=== PATIENT | male | born 1955 | race Caucasian/White ===

== ENCOUNTER 2020-07-17 17:10 | Inpatient (IN) | payer MEDICAID ==
[~2020-07-17] VITALS: Ht 165.1 cm; Wt 79.4 kg
--- NOTE | 2020-07-17 18:45 | NUR ---
PT arrived via gurney at 1800 for Med Surg services. Vitals: BP 159/95, HR 86, O2 93% via NC 5L. PT transferred to bed by lubrication servicer. No acute distress noted. SOB noted during repositioning. PT stated no pain at the moment. PT admitted with Covid. PT is comfortable, cooperative and pleasant. Safety measures provided, call light within reach, bed low and lock. Will endorse report to night warehouse manager nurse.
--- NOTE | 2020-07-17 19:30 | NUR ---
RECEIVED PT IN NO ACUTE DISTRESS. IV INTACT. PT IN 5L NASAL CANNULA. PT AWAKE, ALERT AND ORIENTEDX4. SAFETY AND COMFORT PROVIDED. WILL CONTINUE TO MONITOR.
[2020-07-17 20:00] VITALS: BP 154/92
[2020-07-17] MEDS ORDERED: METF-494 PO (20:22)
[2020-07-17] MEDS ORDERED: MELO-107 PO (20:22)
[2020-07-17] MEDS ORDERED: DEXA10VI IV (21:03)
[2020-07-17] MEDS ORDERED: ZOLP5TAB2 PO (21:06)
[2020-07-17] MEDS: BLOOD SUGAR DIAGNOSTIC 1 EACH STRIP VI SCH (21:15)
[2020-07-17] MEDS ORDERED: DEXTROSE 50% 50 ML DISP.SYRIN IV PRN (21:15)
[2020-07-17] MEDS ORDERED: HYDROCODONE/APAP 5-325MG TABLET PO PRN (21:30)
[2020-07-17] MEDS ORDERED: ACETAMINOPHEN 325 MG TABLET PO PRN (21:30)
[2020-07-17] MEDS ORDERED: ONDANSETRON 4 MG/2 ML VIAL IV PRN (21:30)
[2020-07-17] MEDS ORDERED: Z GUARD REMEDY PASTE 57 GM TUBE TOP PRN (21:30)
[2020-07-17] MEDS ORDERED: MAGNESIUM HYDROXIDE 30 ML LIQUID UDC PO PRN (21:30)
[2020-07-17] MEDS: INSULIN REGULAR, HUMAN 300 UNIT/3 ML VIAL SQ PRN (22:23)
[2020-07-17] MEDS: ZOLPIDEM 5 MG TABLET PO PRN (23:41)
[2020-07-18 04:00] VITALS: BP 153/94
--- NOTE | 2020-07-18 06:15 | NUR ---
PT SLEPT INTERMITTENTLY. PT IN NO ACUTE DISTRESS. IV INTACT. PT ON 5L NASAL CANNULA. PRESCRIBED MEDICATION GIVEN AND PT TOLERATED IT WELL. PT GIVEN TYLENOL 650 MG PRN AT 2341H. SAFETY AND COMFORT PROVIDED. ALL NEEDS ARE MET.WILL CONTINUE TO MONITOR.
--- NOTE | 2020-07-18 06:16 | NUR ---
BLOOD SUGAR WAS 233. PT IN NO ACUTE DISTRESS. WILL ENDORSE TO INCOMING NURSE.
--- NOTE | 2020-07-18 06:29 | NUR ---
CALLED BACK THE FAMILY AND LEFT A MESSAGE IN VOICEMAIL.
[2020-07-18] MEDS: BLOOD SUGAR DIAGNOSTIC 1 EACH STRIP VI SCH ×4 (06:31→21:35)
--- NOTE | 2020-07-18 07:30 | NUR ---
Received patient in bed awake, alert and oriented times 4. Patient is on 5L of oxygen NC with no signs of distress. Safety precautions are in place. Will continue to monitor.
[2020-07-18 07:53] LABS: HEMATOCRIT 47.3 % (36.7-47.1); HEMOGLOBIN 16.2 g/dL (12.5-16.3); LYMPHOCYTES # (AUTO) 1.1 K/uL (20.0-40.0); LYMPHOCYTES % (AUTO) 8.1 % (20.5-51.5); MEAN CORPUSCULAR HEMOGLOBIN 30.6 uug (23.8-33.4); MEAN CORPUSCULAR HGB CONC 34 g/dL (32.5-36.3); MEAN CORPUSCULAR VOLUME 89.7 fL (73.0-96.2); MONOCYTES # (AUTO) 1.2 K/uL (2.0-10.0); MONOCYTES % (AUTO) 8.7 % (0.0-11.0); NEUTROPHILS # (AUTO) 11.2 K/uL (1.8-8.9); NEUTROPHILS % (AUTO) 83.2 % (38.5-71.5); PLATELET COUNT (AUTO) 198 K/uL (152-348); RED BLOOD CELL COUNT(AUTO) 5.28 MIL/uL (4.06-5.63); WHITE BLOOD COUNT (AUTO) 13.5 K/uL (3.6-10.2)
[2020-07-18 08:22] LABS: MAGNESIUM 2.3 mg/dL (1.8-2.4); PHOSPHOROUS 2.6 mg/dL (2.5-4.9); POTASSIUM 4.6 mmol/L (3.5-5.1)
[2020-07-18] MEDS: METFORMIN HCL 500 MG TABLET PO SCH ×2 (09:07→18:15)
[2020-07-18] MEDS: DEXAMETHASONE SOD PHOSPHATE 10 MG INJ IV SCH (09:08)
[2020-07-18] MEDS: MELOXICAM 7.5 MG TABLET PO SCH (09:08)
[2020-07-18] MEDS: ENOXAPARIN SODIUM 40 MG/0.4 ML DISP.SYRIN SQ SCH (09:09)
[2020-07-18] MEDS: INSULIN REGULAR, HUMAN 300 UNIT/3 ML VIAL SQ PRN ×4 (09:11→21:35)
[2020-07-18 11:56] VITALS: BP 133/89
[2020-07-18] MEDS: AZITHROMYCIN IV 500 MG in IV DEXTROSE 5% 250 ML IV SCH (12:26)
--- NOTE | 2020-07-18 13:10 | NUR ---
Critical lab value called in for patient's lactic acid. LA level is 4.3. made aware. Laverne says patient is being followed by ID. Will continue to monitor.
[2020-07-18] MEDS: CEFTRIAXONE 1 G in IV DEXTROSE 5% 50 ML IV SCH (15:00)
[2020-07-18] MEDS ORDERED: REMDESIVIR (CHARGED) 200 MG in IV NORMAL SALINE 210 ML IV ONE (15:30)
[2020-07-18 15:49] LABS: BILIRUBIN,DIRECT 0.2 mg/dL (0.0-0.2); BILIRUBIN,TOTAL 0.4 mg/dL (0.2-1.0)
[2020-07-18 16:00] VITALS: BP 133/80
[2020-07-18 16:30] LABS: BILIRUBIN,DIRECT 0.2 mg/dL (0.0-0.2); BILIRUBIN,TOTAL 0.4 mg/dL (0.2-1.0)
[2020-07-18] MEDS: REMDESIVIR (CHARGED) 100 MG in IV NORMAL SALINE 100 ML IV SCH (17:07)
--- NOTE | 2020-07-18 17:35 | NUR ---
Patients BP at start of remdesivir is 139/82. Will continue to monitor.
--- NOTE | 2020-07-18 18:40 | NUR ---
Remdisivir infusion completed. Patient tolerated well. Will continue to monitor.
--- NOTE | 2020-07-18 19:20 | NUR ---
Patient resting in bed. No signs of distress noted. Pt on O2 5L via NC. Gave all medications as ordered. Bed in low and locked position, safety precautions in place. Will endorse to oncoming nurse.
[2020-07-18 21:24] VITALS: BP 155/90
[2020-07-18 22:00] VITALS: BP 149/86
[2020-07-18] MEDS: ZOLPIDEM 5 MG TABLET PO PRN (22:46)
[2020-07-19 04:21] VITALS: BP 141/78
--- NOTE | 2020-07-19 06:50 | NUR ---
Pt resting. No s/s of acute distress noted. Pt on 5L NC denies SOB. Right FA IV patent and intact. All patient needs were met and attended to. Safety measures and isolation precaution intact.
[2020-07-19] MEDS: BLOOD SUGAR DIAGNOSTIC 1 EACH STRIP VI SCH ×4 (07:01→21:02)
[2020-07-19 07:18] LABS: HEMATOCRIT 47.4 % (36.7-47.1); HEMOGLOBIN 15.9 g/dL (12.5-16.3); LYMPHOCYTES # (AUTO) 1.1 K/uL (20.0-40.0); LYMPHOCYTES % (AUTO) 7.9 % (20.5-51.5); MEAN CORPUSCULAR HEMOGLOBIN 30.1 uug (23.8-33.4); MEAN CORPUSCULAR HGB CONC 34 g/dL (32.5-36.3); MEAN CORPUSCULAR VOLUME 89.6 fL (73.0-96.2); MONOCYTES # (AUTO) 1.1 K/uL (2.0-10.0); MONOCYTES % (AUTO) 7.9 % (0.0-11.0); NEUTROPHILS % (AUTO) 84.2 % (38.5-71.5); PLATELET COUNT (AUTO) 189 K/uL (152-348); RED BLOOD CELL COUNT(AUTO) 5.29 MIL/uL (4.06-5.63); WHITE BLOOD COUNT (AUTO) 14.3 K/uL (3.6-10.2)
[2020-07-19 07:58] LABS: BILIRUBIN,DIRECT 0.3 mg/dL (0.0-0.2); BILIRUBIN,TOTAL 0.5 mg/dL (0.2-1.0); CREATININE 0.8 mg/dL (0.6-1.3); POTASSIUM 4.2 mmol/L (3.5-5.1)
--- NOTE | 2020-07-19 08:00 | NUR ---
Received PT in bed, awake AO X 4. PT is cooperative and pleasant. Makes needs known to staff and interacts with staff when engaged to. No acute distress or SOB noted. No complain of pain noted at this time. Safety measures provided, call light within reach, bed low and lock. Will continue to monitor.
[2020-07-19] MEDS: DEXAMETHASONE SOD PHOSPHATE 10 MG INJ IV SCH (09:14)
[2020-07-19] MEDS: METFORMIN HCL 500 MG TABLET PO SCH ×2 (09:22→18:25)
[2020-07-19] MEDS: MELOXICAM 7.5 MG TABLET PO SCH (09:23)
[2020-07-19] MEDS: ENOXAPARIN SODIUM 40 MG/0.4 ML DISP.SYRIN SQ SCH (09:23)
[2020-07-19] MEDS: INSULIN REGULAR, HUMAN 300 UNIT/3 ML VIAL SQ PRN ×4 (09:25→21:05)
[2020-07-19 11:54] VITALS: BP 140/80
[2020-07-19] MEDS: AZITHROMYCIN IV 500 MG in IV DEXTROSE 5% 250 ML IV SCH (12:21)
[2020-07-19] MEDS: CEFTRIAXONE 1 G in IV DEXTROSE 5% 50 ML IV SCH (13:51)
[2020-07-19] MEDS ORDERED: REMDESIVIR (CHARGED) 100 MG in IV NORMAL SALINE 230 ML IV SCH (15:30)
[2020-07-19 16:00] VITALS: BP 130/77
[2020-07-19] MEDS: REMDESIVIR (CHARGED) 100 MG in IV NORMAL SALINE 100 ML IV SCH (17:51)
--- NOTE | 2020-07-19 18:37 | NUR ---
PT in bed, awake AO X 4 with safety measures. PT stated content and hopefulness today. No acute distress or SOB noted. Vitals documented. No complain of pain noted at this time. PT resting in bed. Safety measures provided, call light within reach, bed low and lock. Will endorse to [facility] shift lead nurse
--- NOTE | 2020-07-19 20:15 | NUR ---
Received patient resting in bed .Alert and able to make needs known.On O2 inhalation at 5 LPM via NC saturating at 92-93%.C/o gen body pain and sore throat.Pain medication [place] given with relieved.IV on right forearm 22 g patent and intact. Continue safety measures .will continue to monitor.
[2020-07-19 20:18] VITALS: BP 163/96
[2020-07-20 05:14] VITALS: BP 142/84
[2020-07-20] MEDS: BLOOD SUGAR DIAGNOSTIC 1 EACH STRIP VI SCH ×4 (06:33→21:41)
[2020-07-20 06:52] LABS: HEMATOCRIT 49.6 % (36.7-47.1); HEMOGLOBIN 16.3 g/dL (12.5-16.3); LYMPHOCYTES # (AUTO) 1.2 K/uL (20.0-40.0); LYMPHOCYTES % (AUTO) 8.3 % (20.5-51.5); MEAN CORPUSCULAR HEMOGLOBIN 29.4 uug (23.8-33.4); MEAN CORPUSCULAR HGB CONC 33 g/dL (32.5-36.3); MEAN CORPUSCULAR VOLUME 89.6 fL (73.0-96.2); MONOCYTES % (AUTO) 6.6 % (0.0-11.0); NEUTROPHILS # (AUTO) 12.6 K/uL (1.8-8.9); NEUTROPHILS % (AUTO) 85.1 % (38.5-71.5); PLATELET COUNT (AUTO) 203 K/uL (152-348); RED BLOOD CELL COUNT(AUTO) 5.54 MIL/uL (4.06-5.63); WHITE BLOOD COUNT (AUTO) 14.8 K/uL (3.6-10.2)
[2020-07-20 07:18] LABS: BILIRUBIN,DIRECT 0.2 mg/dL (0.0-0.2); BILIRUBIN,TOTAL 0.6 mg/dL (0.2-1.0); CREATININE 0.8 mg/dL (0.6-1.3); POTASSIUM 4.5 mmol/L (3.5-5.1); TOTAL PROTEIN, SERUM 5.7 g/dL (6.4-8.2)
--- NOTE | 2020-07-20 08:00 | NUR ---
Received PT in bed, awake AO X 4. PT is cooperative and pleasant. Makes needs known to staff and interacts with staff when engaged to. No acute distress or SOB noted. Some coughing noted. No complain of pain noted at this time. Safety measures provided, call light within reach, bed low and lock. Will continue to monitor.
[2020-07-20] MEDS: DEXAMETHASONE SOD PHOSPHATE 10 MG INJ IV SCH (08:18)
[2020-07-20] MEDS: MELOXICAM 7.5 MG TABLET PO SCH (08:18)
[2020-07-20] MEDS: METFORMIN HCL 500 MG TABLET PO SCH ×2 (08:18→17:45)
[2020-07-20] MEDS: ENOXAPARIN SODIUM 40 MG/0.4 ML DISP.SYRIN SQ SCH (08:19)
[2020-07-20] MEDS: INSULIN REGULAR, HUMAN 300 UNIT/3 ML VIAL SQ PRN ×4 (08:21→22:00)
[2020-07-20 11:04] VITALS: BP 129/76
[2020-07-20] MEDS: AZITHROMYCIN IV 500 MG in IV DEXTROSE 5% 250 ML IV SCH (12:13)
[2020-07-20 15:09] VITALS: BP 130/83
[2020-07-20] MEDS: REMDESIVIR (CHARGED) 100 MG in IV NORMAL SALINE 100 ML IV SCH (17:09)
--- NOTE | 2020-07-20 19:07 | NUR ---
PT in bed, awake AO X 4 with safety measures. PT stated content and hopefulness today. No acute distress or SOB noted. Vitals documented. No coughing noted after this morning's event. No complain of pain noted at this time. PT resting in bed. Safety measures provided, call light within reach, bed low and lock. Will endorse to night guard nurse
--- NOTE | 2020-07-20 19:30 | NUR ---
Pt received awake and alert in bed. Denies pain or SOB. On 5L NC sating at 96%. No distress noted. Call light is within reach. No other issues or concerns at this time.
[2020-07-20 20:56] VITALS: BP 138/86
[2020-07-21 05:14] VITALS: BP 142/83
--- NOTE | 2020-07-21 06:27 | NUR ---
Pt slept throughout the night. On 5L sating at 97%. Denies pain or SOB. Safety and comfort provided. Call light is within reach. No other issues or concerns at this time. Will endorse to day shift.
[2020-07-21] MEDS: BLOOD SUGAR DIAGNOSTIC 1 EACH STRIP VI SCH ×4 (06:59→21:09)
--- NOTE | 2020-07-21 07:00 | NUR ---
Received patient in bed, awake AO X 4, cooperative and pleasant. No acute distress or SOB noted. No complains of pain noted at this time. Safety measures provided, call light within reach, bed in low level and locked in place. Instructed to use call light when in need of assistance Will continue to monitor.
[2020-07-21 07:31] LABS: HEMATOCRIT 49.4 % (36.7-47.1); LYMPHOCYTES # (AUTO) 1.3 K/uL (20.0-40.0); MEAN CORPUSCULAR HEMOGLOBIN 29.5 uug (23.8-33.4); MEAN CORPUSCULAR HGB CONC 32 g/dL (32.5-36.3); MONOCYTES % (AUTO) 6.1 % (0.0-11.0); NEUTROPHILS # (AUTO) 14.4 K/uL (1.8-8.9); NEUTROPHILS % (AUTO) 85.9 % (38.5-71.5); PLATELET COUNT (AUTO) 215 K/uL (152-348); RED BLOOD CELL COUNT(AUTO) 5.43 MIL/uL (4.06-5.63); WHITE BLOOD COUNT (AUTO) 16.8 K/uL (3.6-10.2)
[2020-07-21 08:06] LABS: BILIRUBIN,DIRECT 0.2 mg/dL (0.0-0.2); BILIRUBIN,TOTAL 0.6 mg/dL (0.2-1.0); CREATININE 0.8 mg/dL (0.6-1.3); POTASSIUM 4.8 mmol/L (3.5-5.1); TOTAL PROTEIN, SERUM 5.8 g/dL (6.4-8.2)
[2020-07-21] MEDS: METFORMIN HCL 500 MG TABLET PO SCH ×3 (10:12→18:06)
[2020-07-21] MEDS: DEXAMETHASONE SOD PHOSPHATE 10 MG INJ IV SCH (10:13)
[2020-07-21] MEDS: MELOXICAM 7.5 MG TABLET PO SCH (10:14)
[2020-07-21] MEDS: ENOXAPARIN SODIUM 40 MG/0.4 ML DISP.SYRIN SQ SCH (10:21)
[2020-07-21] MEDS: INSULIN REGULAR, HUMAN 300 UNIT/3 ML VIAL SQ PRN ×3 (10:22→17:18)
[2020-07-21 11:02] VITALS: BP 137/88
[2020-07-21] MEDS: AZITHROMYCIN IV 500 MG in IV DEXTROSE 5% 250 ML IV SCH (12:45)
[2020-07-21 15:17] VITALS: BP 127/75
[2020-07-21] MEDS: REMDESIVIR (CHARGED) 100 MG in IV NORMAL SALINE 100 ML IV SCH (17:34)
--- NOTE | 2020-07-21 19:00 | NUR ---
Patient lying comfortably in bed, no acute distress or SOB noted. IV access on right forearm patent. On oxygen via NC at 5LPM. Tolerated medications well. All concerns attended. Will endorse to renovator machine operator nurse
--- NOTE | 2020-07-21 20:00 | NUR ---
Patient lying comfortably in bed, no acute distress or SOB noted. IV access on right forearm patent. On oxygen via nasal cannula at 5LPM sating at 93%. All concerns attended. Will continue to monitor the pt and follow the plan of care.
[2020-07-21 21:24] VITALS: BP 150/87
[2020-07-22 05:07] LABS: LYMPHOCYTES % (MANUAL) 18 % (20-40); METAMYELOCYTES % 2 % (0-1); MONOCYTES % (MANUAL) 4 % (2-10); MYELOCYTES % 1 % (0-0); NEUTROPHILS % (MANUAL) 75 % (42-75)
--- NOTE | 2020-07-22 05:49 | NUR ---
PT slept through the night, no acute distress or SOB noted. On oxygen via nasal cannula at 5LPM sating at 93%. Last accucheck was 226. Will continue to monitor the pt and endorse the morning shift nurse.
[2020-07-22 06:45] VITALS: BP 130/77
[2020-07-22] MEDS: MELOXICAM 7.5 MG TABLET PO SCH (08:36)
[2020-07-22] MEDS: METFORMIN HCL 500 MG TABLET PO SCH ×2 (08:36→16:54)
[2020-07-22] MEDS: DEXAMETHASONE SOD PHOSPHATE 10 MG INJ IV SCH (08:39)
[2020-07-22] MEDS: ENOXAPARIN SODIUM 40 MG/0.4 ML DISP.SYRIN SQ SCH (08:41)
[2020-07-22] MEDS: BLOOD SUGAR DIAGNOSTIC 1 EACH STRIP VI SCH ×4 (08:47→21:26)
[2020-07-22] MEDS: INSULIN REGULAR, HUMAN 300 UNIT/3 ML VIAL SQ PRN ×4 (08:48→21:28)
[2020-07-22 12:00] VITALS: BP 153/81
[2020-07-22 16:00] VITALS: BP 130/78
[2020-07-22] MEDS ORDERED: REMDESIVIR (CHARGED) 100 MG in IV NORMAL SALINE 100 ML IV SCH (17:00)
--- NOTE | 2020-07-22 18:00 | NUR ---
Pt able 02 tapered to 2 lit via n/c pt saturating 93-94%. Pt has no sob. Call light is within reach.
--- NOTE | 2020-07-22 19:30 | NUR ---
AAOX4. [place] speaking only. In no acute distress. Denies any pain or SOB. On O2 at 2LPM via NC in place. IV site on right FA intact and patent. COVID isolation precaution initiated. Safety measure initiated and call james within reach.
[2020-07-22 20:00] VITALS: BP 134/82
[2020-07-23 04:00] VITALS: BP 144/79
--- NOTE | 2020-07-23 06:32 | NUR ---
No significant event noted throughout the shift. Slept well last night. Denies any pain or SOB. O2 at 2LPM via NC in place. Needs attended to and met. COVID precaution maintained. Safety measure maintained.
[2020-07-23] MEDS: BLOOD SUGAR DIAGNOSTIC 1 EACH STRIP VI SCH ×3 (06:40→16:48)
[2020-07-23] MEDS: MELOXICAM 7.5 MG TABLET PO SCH (09:19)
[2020-07-23] MEDS: METFORMIN HCL 500 MG TABLET PO SCH ×2 (09:19→17:23)
[2020-07-23] MEDS: DEXAMETHASONE SOD PHOSPHATE 10 MG INJ IV SCH (09:20)
[2020-07-23] MEDS: ENOXAPARIN SODIUM 40 MG/0.4 ML DISP.SYRIN SQ SCH (09:25)
[2020-07-23] MEDS: INSULIN REGULAR, HUMAN 300 UNIT/3 ML VIAL SQ PRN ×3 (09:28→16:34)
--- NOTE | 2020-07-23 10:00 | NUR ---
02 sat 87% on R/A at rest. Notified CM to plan o2 tank set up for home for discharge.
[2020-07-23 11:00] VITALS: BP 126/77
[2020-07-23 15:28] VITALS: BP 148/92
[2020-07-23] MEDS ORDERED: DEXA10VI PO (15:56)
[2020-07-23] MEDS ORDERED: ACET325T53 PO (15:56)
--- NOTE | 2020-07-23 19:15 | NUR ---
DISCHARGE INSTRUCTIONS GIVEN TO PT. PT VERBALIZED UNDERSTANDING. PRESCRIPTION GIVEN. O2 AND HOME HEALTH SET UP DONE BY CM. O2 TANK TO GO HOME WITH PT. PT DISCHARGED ON O2 AT 2 LPM. NO SOB. PT WAS PICKED UP BY [facility]. INSTRUCTED TO FOLLOW UP WITH PMD WITHIN 1 WK. AND PT TO FOLLOW UP VACCINE WITH PMD. IV AND NAME BAND TAKEN OUT. PT REFUSE TO TAKE UPDATED PICTURES OF BRUISING FROM ADMISSION.
[2020-07-24 15:07] LABS: CRYPTOCOCCUS AB, SERUM Negative (Negative)
[2020-07-24 21:07] LABS: COCCIDIOIDES CF SERUM Negative (Neg:<1:2)
== END 2020-07-23 19:15 | disposition home or self-care (01) | DRG 137 ==
LOC: MEDSURG3 19:07
PROVIDERS: ADMIT Nurse Practitioner Acute Care; ATTEND Nurse Practitioner Acute Care
PROC: XW033E5 Introduction of Remdesivir Anti-infective into Peripheral Vein, Percutaneous Approach, New Technology Group 5 (ICD-10-PCS; principal; 2020-07-18)
DX: U07.1 COVID-19 (principal); J12.82 Pneumonia due to coronavirus disease 2019; J96.01 Acute respiratory failure with hypoxia; E44.0 Moderate protein-calorie malnutrition; E87.2 Acidosis; I10 Essential (primary) hypertension; R79.89 Other specified abnormal findings of blood chemistry; E88.09 Other disorders of plasma-protein metabolism, not elsewhere classified; Z68.29 Body mass index [BMI] 29.0-29.9, adult; Z79.84 Long term (current) use of oral hypoglycemic drugs; J15.9 Unspecified bacterial pneumonia; E11.9 Type 2 diabetes mellitus without complications
CPT/HCPCS: 36415; 70030-TC; 71046; 83605; 83735; 84100; 85025; 85610; 85730; 86480; 86803; 87040; 87328; 87536; G0378; J0456; J0696; J1100; J1650; J1815; J3490; J7030; J7060